=== PATIENT | female | born 1990 | race Caucasian/White ===

== ENCOUNTER 2016-06-18 08:22 | Emergency (ER) | payer MEDICAID ==
[2016-06-18 08:34] VITALS: BMI 26.2
[2016-06-18 08:35] VITALS: TEMP 98.5
[2016-06-18] MEDS ORDERED: ACETAMINOPHEN 325 MG/TAB TABLET PO ONE (09:13)
[2016-06-18 09:40] LABS: AUTOMATED BASOPHIL 0.4 % (0-2); AUTOMATED EOSINOPHIL 0.5 % (0-5); AUTOMATED LYMPH 24.8 % (17-44); AUTOMATED MONOCYTE 8.9 % (3-10); AUTOMATED NEUTROPHIL 65.4 % (45-76); MPV 8.1 fL (7.4-10.4)
[2016-06-18 09:42] LABS: LEUKOCYTES/URINE NEG (NEGATIVE); NITRITE/URINE NEG (NEGATIVE); RBC/URINE 0-2 (0-5); URINE OCCULT BLOOD 1+ (NEG/TRACE)
[2016-06-18 09:54] LABS: BLOOD UREA NITROGEN 9 MG/DL (7-17); CALCIUM 9.2 MG/DL (8.4-10.2); CALCULATED OSMOLALITY 264 MOs/Kg (270-290); CHLORIDE 105 mEq/L (98-107); GLUCOSE 89 MG/DL (70-99); SODIUM LEVEL 138 mEq/L (137-146); TOTAL PROTEIN 6.9 G/DL (6.3-8.2)
--- NOTE | 2016-06-18 10:35 | EDPRACDOC ---
- General Information Chief Complaint: Vaginal Bleeding Stated Complaint: VAGINAL BLEED Time Seen by Provider: 06/18/16 08:54 Information Source: Patient Mode of Arrival: Car Home Medications: Home Medications Vits W-Ca,Fe,FA(<1Mg) [] 1 each PO DAILY #30 tablet 06/18/16 Allergies/Adverse Reactions: Allergies Allergy/AdvReac Type Severity Reaction Status Date / Time No Known Allergies Allergy Verified 06/18/16 08:35 - History of Present Illness Onset: LAST NIGHT HPI: PT PRESENTS TODAY WITH VAGINAL BLEEDING THAT BEGAN 6 HOURS AGO. PT STATES THAT SHE FOUND OUT SHE WAS 2 WEEKS AGO, WITH LMP ABOUT 7 WEEKS AGO. STATES SHE SOAKED 3 PADS, AND THE BLEEDING STOPPED. STATES SEVERE LOWER ABD CRAMPING. DENIES FEVER, CP, SHOB, N/V/D, DYSURIA, VAGINAL DISCHARGE. PT . BOTH PREVIOUS PREGNANCIES WERE BORN 2 MONTHS EARLY. NO APPARENT DISTRESS. PT TEXTING. Description: Reports: Spontaneous Location: Reports: Internal Vagina Relevant History: Reports: Currently : 3 Para: 2 Total Number of Abortions: 0 Last Menstrual Period: 04/29/2016 Control Method: Reports: None Pain Severity: Moderate Vaginal Bleeding Description: Reports: Bright Red # Pads Used in the Last 12/24 Hours: 3 Associated Signs & Symptoms: Reports: Vaginal Bleeding ED Past Medical History - History Reviewed Yes Nurses notes reviewed and agree except as marked - Patient Medical History GI/ History: Denies: Urinary Tract Infection - Family Medical History Reports: Diabetes (Paternal Grandmother & Paternal Grandfather, Mother), Cardiac Disorders (Paternal Grandmother)Comment Only: Hypertension (Paternal Grandmother) - Social Medical History Smoking Status: Never smoker EDM Review of Systems - Review of Systems ROS Negative Except as Marked: Yes All systems reviewed and were negative except as marked Constitutional: No Symptoms Reported Respiratory: No Symptoms Reported Cardiovascular: No Symptoms Reported Gastrointestinal: Pain Genitourinary: Bleeding, Neurological: No Symptoms Reported Musculoskeletal: No Symptoms Reported Integumentary: No Symptoms Reported - Physical Exam Constitutional: Alert (Awake), No apparent distress Oriented to: Time, Person, Place Last recorded Vital Signs: Last Vital Signs Temp 98.5 F 06/18/16 08:34 Pulse 63 06/18/16 08:34 Resp 18 06/18/16 08:34 BP 108/53 L 06/18/16 08:34 Pulse Ox 100 06/18/16 08:34 Oxygen Pulse Oxygen Saturation 100 O2 Device Oxygen Flow Rate Fraction of Inspired Oxygen ( FIO2) - HEENT Head: Normal Eye Exam: Normal Neck: Normal, Denies Pain, Midline - Respiratory/Cardiovascular Respiratory: Normal - CTA Cardiovascular: Normal - GI Auscultation: Normal Palpation: Normal Tenderness: Moderate, RLQ, LLQ Adams's Sign: Negative - Bladder: Normal External: Normal Vagina: Normal Cervix: Normal (CLOSED; NO BLOOD NOTED IN THE VAGINAL VAULT) Uterus: Normal size Adnexa: Bilateral: Normal - Musculoskeletal Back: Normal Extremities: Normal - Integumentary Skin: Normal Lymphatics: Normal - Neurologic Cerebellar: Normal Mood Description: Normal Thought: Coherent Perception: Normal ED Vaginal Exam External: Normal Vaginal Exam: Normal Vaginal Lesions: None Vaginal Discharge: None Cervix: Normal Uterus: Normal size Adnexa: Normal - Results 06/18/16 09:35 06/18/16 09:35 WBC 8.6 xk/uL (3.8-10.8) 06/18/16 09:35 RBC 3.97 xM/uL (4.20-5.40) L 06/18/16 09:35 Hgb 11.6 g/dL (12.0-16.0) L 06/18/16 09:35 Hct 34.3 % (36-47) L 06/18/16 09:35 MCV 86 fL (81-99) 06/18/16 09:35 MCH 29.2 pg (27-32) 06/18/16 09:35 MCHC 33.9 g/dl (33-36) 06/18/16 09:35 RDW 13.3 % (11.5-14.5) 06/18/16 09:35 Plt Count 253 xk/uL (130-400) 06/18/16 09:35 MPV 8.1 fL (7.4-10.4) 06/18/16 09:35 Neut % (Auto) 65.4 % (45-76) 06/18/16 09:35 Lymph % (Auto) 24.8 % (17-44) 06/18/16 09:35 Hardy % (Auto) 8.9 % (3-10) 06/18/16 09:35 Eos % (Auto) 0.5 % (0-5) 06/18/16 09:35 Baso % (Auto) 0.4 % (0-2) 06/18/16 09:35 Absolute Neuts (auto) 5.59 xk/uL (1.7-8.2) 06/18/16 09:35 Absolute Lymphs (auto) 2.06 xk/uL (0.65-4.75) 06/18/16 09:35 Sodium 138 mEq/L (137-146) 06/18/16 09:35 Potassium 3.6 mEq/L (3.5-5.1) 06/18/16 09:35 Chloride 105 mEq/L (98-107) 06/18/16 09:35 Carbon Dioxide 22 mMOL/L (22-33) 06/18/16 09:35 Anion Gap 15 mEq/L (8-16) 06/18/16 09:35 BUN 9 MG/DL (7-17) 06/18/16 09:35 Creatinine 0.50 MG/DL (0.52-1.04) L 06/18/16 09:35 Estimated GFR (MDRD) > 60 mL/min (>=60) 06/18/16 09:35 Glucose 89 MG/DL (70-99) 06/18/16 09:35 Calculated Osmolality 264 MOs/Kg (270-290) L 06/18/16 09:35 Calcium 9.2 MG/DL (8.4-10.2) 06/18/16 09:35 Total Bilirubin 0.4 MG/DL (0.2-1.3) 06/18/16 09:35 AST 14 IU/L (14-36) 06/18/16 09:35 ALT 32 IU/L (9-52) 06/18/16 09:35 Alkaline Phosphatase 58 IU/L (38-126) 06/18/16 09:35 Total Protein 6.9 G/DL (6.3-8.2) 06/18/16 09:35 Albumin 4.0 G/DL (3.5-5.0) 06/18/16 09:35 Beta HCG, Quant > 85063.0 mIU/mL (<5) 06/18/16 09:35 Urine Color Yellow 06/18/16 09:28 Urine Clarity Clear 06/18/16 09:28 Urine pH 6.0 (5.0-8.0) 06/18/16 09:28 Ur Specific Trimble >/=1.035 (1.003-1.035) 06/18/16 09:28 Urine Protein 1+ (NEG/TRACE) H 06/18/16 09:28 Urine Glucose (UA) Neg (NEGATIVE) 06/18/16 09:28 Urine Ketones 1+ (NEGATIVE) H 06/18/16 09:28 Urine Occult Blood 1+ (NEG/TRACE) H 06/18/16 09:28 Urine Nitrite Neg (NEGATIVE) 06/18/16 09:28 Urine Bilirubin Neg (NEGATIVE) 06/18/16 09:28 Urine Urobilinogen 4 MG/DL (0-1) H 06/18/16 09:28 Ur Leukocyte Esterase Neg (NEGATIVE) 06/18/16 09:28 Urine RBC 0-2 (0-5) 06/18/16 09:28 Urine WBC 2-5 (0-5) 06/18/16 09:28 Ur Epithelial Cells 3+ 06/18/16 09:28 Urine Bacteria 1+ (NEG/FEW) H 06/18/16 09:28 Hyaline Casts 2-5 (0-2) H 06/18/16 09:28 Urine Mucus Large (NEG/OCC) 06/18/16 09:28 Lab Results 06/18/16 06/18/16 06/18/16 09:35 09:35 09:28 WBC 8.6 RBC 3.97 L Hgb 11.6 L Hct 34.3 L MCV 86 MCH 29.2 MCHC 33.9 RDW 13.3 Plt Count 253 MPV 8.1 Neut % (Auto) 65.4 Lymph % (Auto) 24.8 Hardy % (Auto) 8.9 Eos % (Auto) 0.5 Baso % (Auto) 0.4 Absolute Neuts (auto) 5.59 Absolute Lymphs (auto) 2.06 Sodium 138 Potassium 3.6 Chloride 105 Carbon Dioxide 22 Anion Gap 15 BUN 9 Creatinine 0.50 L Estimated GFR (MDRD) > 60 Glucose 89 Calculated Osmolality 264 L Calcium 9.2 Total Bilirubin 0.4 AST 14 ALT 32 Alkaline Phosphatase 58 Total Protein 6.9 Albumin 4.0 Beta HCG, Quant > 16214.0 Urine Color Yellow Urine Clarity Clear Urine pH 6.0 Ur Specific Trimble >/=1.035 Urine Protein 1+ H Urine Glucose (UA) Neg Urine Ketones 1+ H Urine Occult Blood 1+ H Urine Nitrite Neg Urine Bilirubin Neg Urine Urobilinogen 4 H Ur Leukocyte Esterase Neg Urine RBC 0-2 Urine WBC 2-5 Ur Epithelial Cells 3+ Urine Bacteria 1+ H Hyaline Casts 2-5 H Urine Mucus Large Decision Time to Discharge: 10:36 - Departure Disposition: Home Condition: Good Final Diagnosis: Qualifiers: Weeks of gestation: less than 8 weeks Qualified Code(s): Z3A.01 - Less than 8 weeks gestation of Instructions: Threatened Miscarriage (ED), (ED) Education/Counseling Given To: Patient Education/Counseling Given Regarding: Diagnosis, Treatment, Follow Up Referrals: None,No Provider [Primary Care Provider] - One Week Harjeet Fuentes MD [Staff Physician] - One Week Prescriptions: Vits W-Ca,Fe,FA(<1Mg) [] 1 each PO DAILY #30 tablet Additional Instructions: PLEASE FOLLOW UP WITH CHILD SUPPORT OFFICER.
[2016-06-18 10:46] LABS: QUANTITATIVE SERUM HCG 98548.2 mIU/mL (<5)
--- NOTE | 2016-06-18 11:00 | DIRPT ---
CLINICAL DATA: Vaginal bleeding and pain. Beta HCG greater than 15,000. EXAM: OBSTETRIC <14 WK US AND TRANSVAGINAL OB US TECHNIQUE: Both transabdominal and transvaginal ultrasound examinations were performed for complete evaluation of the gestation as well as the maternal uterus, adnexal regions, and pelvic cul-de-sac. Transvaginal technique was performed to assess early . COMPARISON: None. FINDINGS: Intrauterine gestational sac: Visualized/normal in shape. Yolk sac: Present Embryo: Present Cardiac Activity: Present Heart Rate: 168 bpm MSD: mm w d CRL: 11.9 mm mm 7 w 6 d US EDC: 02/01/2017 Subchorionic hemorrhage: Small subchorionic hemorrhage. Maternal uterus/adnexae: Normal ovaries. No free fluid. IMPRESSION: Single living intrauterine 7 weeks 6 days. Small subchorionic hemorrhage. Electronically Signed By: Desmond Gibbs M.D. On: 06/18/2016 10:57
[2016-06-18 11:20] VITALS: BP 124/74; PULSE 77
== END 2016-06-18 10:53 | disposition home or self-care (01) ==
LOC: ED 08:22
DX: O20.9 Hemorrhage in early pregnancy, unspecified (principal); Z3A.00 Weeks of gestation of pregnancy not specified
CPT/HCPCS: 36415; 76801; 76817; 80053; 81001; 84702; 85025; 87210; 87220; 87491; 87591; 99283; J3490